=== PATIENT | male | born 1980 | race American Indian/Alaskan Native ===

== ENCOUNTER 2022-06-25 21:19 | Inpatient (IN) | payer SELFPAY ==
[2022-06-25 21:43] LABS: Basophils % (Auto) 0.2 % (0.0-1.8); Eosinophils % (Auto) 0.2 % (0.0-4.3); Hematocrit 40.4 % (35.5-45.6); Hemoglobin 13.4 gm/dl (11.8-15.2); Lymphocytes # (Auto) 2.8 K/mm3 (1.2-5.4); Lymphocytes % (Auto) 16.4 % (13.4-35.0); Mean Corpuscular HGB Conc 33 % (32-34); Mean Corpuscular Volume 83 fl (84-94); Monocytes # (Auto) 1.2 K/mm3 (0.0-0.8); Monocytes % (Auto) 6.6 % (0.0-7.3); Platelet Count 264 K/mm3 (140-440); Red Blood Count 4.88 M/mm3 (3.65-5.03); Red Cell Distribution Width 13.7 % (13.2-15.2)
[2022-06-25 21:57] LABS: Alanine Aminotransferase 28 units/L (7-56); Albumin 3.9 g/dL (3.9-5); BUN/Creatinine Ratio 10; Blood Urea Nitrogen 8 mg/dL (9-20); Calcium 8.8 mg/dL (8.4-10.2); Hemolysis Index 7
[2022-06-25 22:15] LABS: Mucus,Urine 3+ /HPF
[2022-06-25 22:22] LABS: Bilirubin,Urine Negative (Negative); Color,Urine Yellow (Yellow)
[2022-06-25 22:23] LABS: Blood,Urine Trace (Negative); Urobilinogen,Urine < 2.0 mg/dL (<2.0)
[2022-06-26] MEDS ORDERED: HYOSCYAMINE SUBL 0.125 MG TAB SL ONE (01:56)
--- NOTE | 2022-06-26 02:01 | Emergency Department Report ---
ED General Adult HPI - General Chief complaint: Abdominal Pain Stated complaint: ABD PAIN Time Seen by Provider: 06/26/22 01:54 Source: patient Mode of arrival: Ambulatory Limitations: No Limitations - History of Present Illness Severity scale (0 -10): 8 - Related Data Allergies Allergy/AdvReac Type Severity Reaction Status Date / Time No Known Allergies Allergy Unverified 06/25/22 21:25 ED Review of Systems ROS: Stated complaint: ABD PAIN Other details as noted in HPI Comment: All other systems reviewed and negative ED Past Medical Hx - Past Medical History Previous Medical History?: Yes Hx Diabetes: Yes - Surgical History Past Surgical History?: No ED Physical Exam - General Limitations: No Limitations General appearance: alert, in no apparent distress - Head Head exam: Present: atraumatic, normocephalic - Eye Eye exam: Present: normal appearance, PERRL, EOMI - ENT ENT exam: Present: mucous membranes moist - Neck Neck exam: Present: normal inspection - Respiratory Respiratory exam: Present: normal lung sounds bilaterally. Absent: respiratory distress - Cardiovascular Cardiovascular Exam: Present: regular rate, normal rhythm. Absent: systolic murmur, diastolic murmur, rubs, gallop - GI/Abdominal GI/Abdominal exam: Present: soft, tenderness, normal bowel sounds. Absent: distended, guarding, hypoactive bowel sounds, mass, bruit - Rectal Rectal exam: Present: deferred - Extremities Exam Extremities exam: Present: normal inspection - Back Exam Back exam: Present: normal inspection - Neurological Exam Neurological exam: Present: alert, oriented X3 - Psychiatric Psychiatric exam: Present: normal affect, normal mood - Skin Skin exam: Present: warm, dry, intact, normal color. Absent: rash ED Course Vital Signs 06/25/22 06/26/22 21:25 05:33 Temperature 98.1 F Pulse Rate 85 Respiratory 16 18 Rate Blood Pressure 168/90 [Right] O2 Sat by Pulse 97 Oximetry - Consultations Consultation #1: 06/26/22 07:40 Case discussed with Generl surgery Dr. Renee Plan to consult. Advised to admit to medicine. Accepted by Dr. Keith ED Medical Decision Making - Lab Data Result diagrams: 06/25/22 21:34 06/25/22 21:34 - Radiology Data Radiology results: report reviewed [facility] [address] [place] [address] Cat Scan Report Signed Patient: JOSHUA DUBOSE MR#: [id number] : 1980 Acct:[id number] Age/Sex: 41 / M ADM Date: 06/25/22 Loc: ED Attending Dr: Ordering Physician: RADHA BRADSHAW Date of Service: 06/26/22 Procedure(s): CT abdomen pelvis w con Accession Number(s): [id number] cc: RADHA BRADSHAW CT ABDOMEN AND PELVIS WITH CONTRAST HISTORY: Lower ABD Pain. COMPARISON: None. TECHNIQUE: CT images of the abdomen and pelvis were obtained following ad ministration of intravenous contrast. All CT scans at this location are performed using CT dose reduction for ALARA by means of automated exposure control. CONTRAST: 100 ml of intravenous contrast administered. FINDINGS: Lungs/bones: Lung bases are clear Abdomen/pelvis: Mild fatty infiltration liver. There is some edema/fluid surrounding the gallbladder. The spleen, adrenal glands, pancreas and upper GI tract appear normal. Bilateral kidneys appear normal. The appendix appears normal. There are several diverticula within the sigmoid colon. Incomplete distention of the left colon. Thickening of the distal sigmoid colon and rectal wall. No focal inflammatory changes seen. No small bowel obstruction is identified. No hydronephrosis is seen. Urinary bladder appears normal. No acute bone findings are seen. IMPRESSION: 1. Fluid/edematous change surrounding the gallbladder could represent gallbladder wall thickening is fluid. Gallbladder ultrasound could be performed for further evaluation. 2. Sigmoid diverticulosis. There is thickening of the distal sigmoid colon and rectal wall best seen on axial image 151. Follow-up recommended. Signer Name: Chico Locke MD Signed: 06/26/2022 3:25 AM Workstation Name: [id number] Transcribed By: DANIELA Dictated By: NATHALY LOCKE MD Electronically Authenticated By: NATHALY LOCKE MD Signed Date/Time: 06/26/22324 DD/ 1 TD/TT: Critical care attestation.: If time is entered above; I have spent that time in minutes in the direct care of this critically ill patient, excluding procedure time. ED Disposition Clinical Impression: Acute cholecystitis Disposition: 01 HOME / SELF CARE / HOMELESS Is pt being admited?: Yes Does the pt Need Aspirin: No Condition: Stable Instructions: Cholecystitis
--- NOTE | 2022-06-26 03:30 | Cat Scan Report ---
CT ABDOMEN AND PELVIS WITH CONTRAST HISTORY: Lower ABD Pain. COMPARISON: None. TECHNIQUE: CT images of the abdomen and pelvis were obtained following administration of intravenous contrast. All CT scans at this location are performed using CT dose reduction for ALARA by means of automated exposure control. CONTRAST: 100 ml of intravenous contrast administered. FINDINGS: Lungs/bones: Lung bases are clear Abdomen/pelvis: Mild fatty infiltration liver. There is some edema/fluid surrounding the gallbladder . The spleen, adrenal glands, pancreas and upper GI tract appear normal. Bilateral kidneys appear nor mal. The appendix appears normal. There are several diverticula within the sigmoid colon. Incomplete distention of the left colon. Thickening of the distal sigmoid colon and rectal wall. No focal inflam matory changes seen. No small bowel obstruction is identified. No hydronephrosis is seen. Urinary pallavi dder appears normal. No acute bone findings are seen. IMPRESSION: 1. Fluid/edematous change surrounding the gallbladder could represent gallbladder wall thickening is fluid. Gallbladder ultrasound could be performed for further evaluation. 2. Sigmoid diverticulosis. There is thickening of the distal sigmoid colon and rectal wall best seen on axial image 151. Follow-up recommended. Signer Name: Chico Locke MD Signed: 06/26/2022 3:25 AM Workstation Name: [id number]
[2022-06-26] MEDS ORDERED: KETOROLAC 30 MG/1 ML INJ IV STA (05:28)
[2022-06-26] MEDS ORDERED: ONDANSETRON 4 MG/2 ML INJ IV STA (05:28)
--- NOTE | 2022-06-26 07:04 | Ultrasound Report ---
Abdominal ultrasound INDICATION: Right upper quadrant pain FINDINGS: Aorta and IVC appear normal. Right kidney measures 9.9 cm. The liver is enlarged measuring 19.8 cm with fatty infiltration. There is marked thickening of the gallbladder wall with pericholecys tic fluid negative Ayoub's sign. Common bile duct measures 4 mm IMPRESSION: Cholelithiasis with thickened gallbladder wall measuring 7.9 mm. There is also pericholecystic fluid. Findings concerning for acute cholecystitis. Hepatomegaly with hepatic steatosis. Signer Name: Chico Locke MD Signed: 06/26/2022 7:00 AM Workstation Name: [id number]
[2022-06-26] MEDS ORDERED: PIPERACILLIN/TAZOBACTAM 3.375 3.375 GM/50 ML BAG IV ONE (07:23)
--- NOTE | 2022-06-26 07:49 | History and Physical Report ---
History of Present Illness Date of examination: 06/26/22 Date of admission: 06/26/2022 Chief complaint: Nausea, vomiting, diarrhea, and abdominal pain of 1 day duration History of present illness: 41-year-old morbidly obese male patient with no significant past medical history not on any medications presented to the emergency room with complaints of nausea vomiting diarrhea and upper abdominal pain since yesterday patient grades his pain between 7-8 over 10 at its peak intermittent patient did not take any new medications not tried any new diet denies hematemesis or melena initial evaluation in the ED with CT abdomen and pelvis findings are consistent with possible acute cholecystitis confirmed by, abdominal ultrasound Denies any fever denies any headache dizziness, denies any chest pain or shortness of breath Patient received pain medications IV fluids and empiric IV antibiotics ER physician has already consulted surgeon Dr. Renee Abdominal ultrasound; cholelithiasis with thickened gallbladder wall measuring 7.9 mm, pericholecystic fluid present findings concerning for acute cholecystitis CT abdomen and pelvis with contrast; Fluid/edematous changes surrounding the gallbladder could represent gallbladder wall thickening gallbladder ultrasound could be performed for further evaluation Sigmoid diverticulosis, there is thickening of the distal sigmoid colon and rectal wall best seen on the axial image Past History Past Medical History: No medical history Past Surgical History: No surgical history Social history: denies: smoking, alcohol abuse, prescription drug abuse Family history: no significant family history Medications and Allergies Allergies Allergy/AdvReac Type Severity Reaction Status Date / Time No Known Allergies Allergy Unverified 06/25/22 21:25 Active Meds: Active Medications Piperacillin Sod/Tazobactam Sod (Zosyn/Ns 3.375gm/50ml) 3.375 gm in 50 mls @ 100 mls/hr IV ONCE ONE; Protocol Stop: 06/26/22 07:52 Sodium Chloride (Sodium Chloride 0.9% 10 Ml Flush Syringe) 10 ml IV PRN PRN PRN Reason: LINE FLUSH Review of Systems Constitutional: fatigue, weakness, no weight loss, no weight gain, no fever, no chills Ears, nose, mouth and throat: no nasal congestion, no nasal discharge Cardiovascular: no chest pain, no orthopnea, no palpitations Respiratory: no cough, no hemoptysis Gastrointestinal: abdominal pain, nausea, vomiting, diarrhea Genitourinary Male: no dysuria, no hematuria Musculoskeletal: no myalgias, no arthritis Integumentary: no rash, no lesions Neurological: no parathesias, no numbness, no seizures, no syncope Psychiatric: no anxiety, no depression Endocrine: no cold intolerance, no heat intolerance Hematologic/Lymphatic: no easy bruising, no easy bleeding Allergic/Immunologic: no urticaria, no allergic rhinitis Exam - Constitutional Vitals: Temp Pulse Resp BP Pulse Ox 98.1 F 85 18 168/90 97 06/25/22 21:25 06/25/22 21:25 06/26/22 05:33 06/25/22 21:25 06/25/22 21:25 General appearance: Present: mild distress, well-nourished, obese (Morbidly obese) - EENT Eyes: Present: PERRL, EOM intact - Neck Neck: Present: supple, normal ROM - Respiratory Respiratory effort: normal Respiratory: bilateral: diminished, negative: rales, rhonchi, wheezing - Cardiovascular Rhythm: regular Heart Sounds: Present: S1 & S2 - Extremities Extremities: no ischemia, No edema - Abdominal General gastrointestinal: Present: soft, non-tender, non-distended, normal bowel sounds - Integumentary Integumentary: Present: clear, warm - Musculoskeletal Musculoskeletal: strength equal bilaterally, generalized weakness - Psychiatric Psychiatric: appropriate mood/affect, cooperative - Neurologic Neurologic: CNII-XII intact, moves all extremities Results - Labs CBC & Chem 7: 06/25/22 21:34 06/25/22 21:34 Labs: Abnormal lab results 06/25/22 06/25/22 Range/Units 21:34 21:34 WBC 17.3 H (4.5-11.0) K/mm3 MCV 83 L (84-94) fl MCH 27 L (28-32) pg [place] # (Auto) 1.2 H (0.0-0.8) K/mm3 Seg Neutrophils % 76.6 H (40.0-70.0) % Seg Neutrophils # 13.3 H (1.8-7.7) K/mm3 Sodium 135 L (137-145) mmol/L BUN 8 L (9-20) mg/dL Glucose 144 H (75-100) mg/dL Assessment and Plan -- Possible acute cholecystitis with cholelithiasis; N.p.o. status, IV fluids, IV antibiotics Surgery consult -- Intractable nausea vomiting and abdominal pain; Secondary to possible acute cholecystitis Antiemetics, PPIs, IV fluids, treat the underlying cause -- Leukocytosis; Probably due to acute cholecystitis Treat the underlying cause,Closely monitor -- Mild hyponatremia; IV normal saline closely monitor electrolytes, -- Hypertension; Patient has no history of hypertension knowledge patient on any medications Probably due to pain and discomfort Closely monitor blood pressures and adjust meds as needed As needed hydralazine -- DVT prophylaxis; SCDs, no pharmacologic anticoagulation at this point Due to possible pending procedure --Morbid obesity; BMI 42.8 Patient needs lifestyle changes, dietary modification and exercise as tolerated And weight reduction when he is medically stable May benefit from outpatient bariatric surgical consultation for different reduction programs when patient is stable. Follow clinically, follow surgery evaluation recommendations We will closely monitor the patient and adjust the management as needed Plan of care discussed with the patient and his nurse. Advance care planning; +30 minutes I discussed patient's condition and tests and reports, I discussed with the patient his diagnosis I discussed with patient the treatment plan, I discussed with the patient the need for consultants evaluating him I discussed with the patient the recommendations of the consultants and the treatment plan. He had numerous questions and I answered all of them. Patient verbalized understanding Prolonged inpatient care; 35 minutes --
[2022-06-26] MEDS ORDERED: ACETAMINOPHEN 325 MG TAB PO PRN (09:00)
[2022-06-26] MEDS ORDERED: MORPHINE 4 MG/1 ML INJ IV PRN (09:00)
[2022-06-26] MEDS ORDERED: ONDANSETRON 4 MG/2 ML INJ IV PRN (09:00)
[2022-06-26] MEDS: ENOXAPARIN 40 MG/0.4 ML INJ SUB-Q SCH (09:49)
[2022-06-26] MEDS: PANTOPRAZOLE 40 MG INJ IV SCH (09:49)
--- NOTE | 2022-06-26 10:04 | Consultation ---
History of Present Illness Consult date: 06/26/22 Reason for consult: abdominal pain - History of present illness History of present illness: This is a 41-year-old -[place] male patient he notes the onset of upper abdominal pain beginning last Sunday after fried chicken. He has not had some similar pain in the past. He is denying any prior history of pancreatitis or ye llow jaundice. His white count what it was noted to be elevated to 17,[address] scan of the abdomen is showing acute cholecystitis. Ultrasound was also obtained confirming also acute cholecystitis. At the time of the interview patient was beginning to feel better. Medications and Allergies Allergies Allergy/AdvReac Type Severity Reaction Status Date / Time No Known Allergies Allergy Unverified 06/25/22 21:25 Active Meds: Active Medications Acetaminophen (Acetaminophen 325 Mg Tab) 650 mg PO Q4H PRN PRN Reason: Pain MILD(1-3)/Fever >100.5/SMITH Enoxaparin Sodium (Enoxaparin 40 Mg/0.4 Ml Inj) 40 mg SUB-Q QDAY [facility] Last Admin: 06/26/22 09:49 Dose: 40 mg Sodium Chloride (Nacl 0.9% 1000 Ml) 1,000 mls @ 125 mls/hr IV DIRECT ARLENE Piperacillin Sod/Tazobactam Sod (Zosyn/Ns 4.5gm/100ml) 4.5 gm in 100 mls @ 200 mls/hr IV Q8H [facility]; Protocol Morphine Sulfate (Morphine 2 Mg/1 Ml Inj) 2 mg IV Q4H PRN PRN Reason: Pain, Moderate (4-6) Morphine Sulfate (Morphine 4 Mg/1 Ml Inj) 4 mg IV Q4H PRN PRN Reason: Pain , Severe (7-10) Ondansetron HCl (Ondansetron 4 Mg/2 Ml Inj) 4 mg IV Q4H PRN PRN Reason: Nausea And Vomiting Pantoprazole Sodium (Pantoprazole 40 Mg Inj) 40 mg IV QDAY [facility] Last Admin: 06/26/22 09:49 Dose: 40 mg Sodium Chloride (Sodium Chloride 0.9% 10 Ml Flush Syringe) 10 ml IV PRN PRN PRN Reason: LINE FLUSH Sodium Chloride (Sodium Chloride 0.9% 10 Ml Flush Syringe) 10 ml IV BID [facility] Last Admin: 08/15/22 09:52 Dose: 10 ml Sodium Chloride (Sodium Chloride 0.9% 10 Ml Flush Syringe) 10 ml IV PRN PRN PRN Reason: LINE FLUSH Exam Vital Signs Temp Pulse Resp BP Pulse Ox 98.1 F 85 16 168/90 97 06/25/22 21:25 06/25/22 21:25 06/25/22 21:25 06/25/22 21:25 06/25/22 21:25 - General physical appearance Positive: well developed, no distress - Eyes Positive: PERRL - Neck Positive: no masses, no bruits, trachea midline - Respiratory Positive: normal expansion - Cardiovascular Rhythm: regular - Extremities Extremities: no ischemia, No edema - Abdomen Abdomen: Present: soft, tender, bowel sounds normal. Absent: distended, masses, rebound Hernia: none - Integumentary no rash - Neurologic Neurologic: alert and oriented to time, place and person, motor strength and sensation are grossly intact, CN II-XII intact Results - Labs 06/25/22 21:34 06/25/22 21:34 Abnormal lab results 06/25/22 06/25/22 Range/Units 21:34 21:34 WBC 17.3 H (4.5-11.0) K/mm3 MCV 83 L (84-94) fl MCH 27 L (28-32) pg [place] # (Auto) 1.2 H (0.0-0.8) K/mm3 Seg Neutrophils % 76.6 H (40.0-70.0) % Seg Neutrophils # 13.3 H (1.8-7.7) K/mm3 Sodium 135 L (137-145) mmol/L BUN 8 L (9-20) mg/dL Glucose 144 H (75-100) mg/dL Diabetes panel 06/25/22 Range/Units 21:34 Sodium 135 L (137-145) mmol/L Potassium 3.7 (3.6-5.0) mmol/L Chloride 98.1 (98-107) mmol/L Carbon Dioxide 24 (22-30) mmol/L BUN 8 L (9-20) mg/dL Creatinine 0.8 (0.8-1.3) mg/dL Glucose 144 H (75-100) mg/dL Calcium 8.8 (8.4-10.2) mg/dL AST 21 (5-40) units/L ALT 28 (7-56) units/L Alkaline Phosphatase 90 (35-129) units/L Total Protein 8.1 (6.3-8.2) g/dL Albumin 3.9 (3.9-5) g/dL Calcium panel 06/25/22 Range/Units 21:34 Calcium 8.8 (8.4-10.2) mg/dL Albumin 3.9 (3.9-5) g/dL Pituitary panel 06/25/22 Range/Units 21:34 Sodium 135 L (137-145) mmol/L Potassium 3.7 (3.6-5.0) mmol/L Chloride 98.1 (98-107) mmol/L Carbon Dioxide 24 (22-30) mmol/L BUN 8 L (9-20) mg/dL Creatinine 0.8 (0.8-1.3) mg/dL Glucose 144 H (75-100) mg/dL Calcium 8.8 (8.4-10.2) mg/dL Adrenal panel 06/25/22 Range/Units 21:34 Sodium 135 L (137-145) mmol/L Potassium 3.7 (3.6-5.0) mmol/L Chloride 98.1 (98-107) mmol/L Carbon Dioxide 24 (22-30) mmol/L BUN 8 L (9-20) mg/dL Creatinine 0.8 (0.8-1.3) mg/dL Glucose 144 H (75-100) mg/dL Calcium 8.8 (8.4-10.2) mg/dL Total Bilirubin 0.60 (0.1-1.2) mg/dL AST 21 (5-40) units/L ALT 28 (7-56) units/L Alkaline Phosphatase 90 (35-129) units/L Total Protein 8.1 (6.3-8.2) g/dL Albumin 3.9 (3.9-5) g/dL Assessment and Plan Patient with acute cholecystitis. Clinically with signs of improvement. Continue IV antibiotics for the elevated white count. Patient may have clear liquids at this time. And if tolerated advance to a low-fat diet. Please make patient n.p.o. after midnight. If pain rate recurs patient will have lap clemencia done this admission.
[2022-06-26] MEDS: MORPHINE 2 MG/1 ML INJ IV PRN (14:28)
[2022-06-26] MEDS: PIPERACIL/TAZOBACTA 4.5/NS 100 4.5 GM/100 ML VIAL IV SCH ×2 (21:49→23:03)
[2022-06-26] MEDS: SODIUM CHLORIDE 0.9% 1000 ML 1,000 ML IV SCH (23:05)
[2022-06-27 06:19] LABS: Basophils % (Auto) 0.2 % (0.0-1.8); Eosinophils % (Auto) 0.3 % (0.0-4.3); Hemoglobin 12.4 gm/dl (11.8-15.2); Lymphocytes # (Auto) 2.2 K/mm3 (1.2-5.4); Lymphocytes % (Auto) 16.8 % (13.4-35.0); Mean Corpuscular HGB Conc 32 % (32-34); Mean Corpuscular Volume 83 fl (84-94); Monocytes # (Auto) 1.3 K/mm3 (0.0-0.8); Monocytes % (Auto) 9.8 % (0.0-7.3); Platelet Count 230 K/mm3 (140-440); Red Blood Count 4.67 M/mm3 (3.65-5.03)
[2022-06-27] MEDS: SODIUM CHLORIDE 0.9% 1000 ML 1,000 ML IV SCH ×3 (06:27→23:11)
[2022-06-27] MEDS: MORPHINE 2 MG/1 ML INJ IV PRN ×2 (06:30→14:28)
[2022-06-27 06:41] LABS: Alanine Aminotransferase 19 units/L (7-56); Albumin 3.6 g/dL (3.9-5); BUN/Creatinine Ratio 10; Blood Urea Nitrogen 9 mg/dL (9-20); Calcium 8.8 mg/dL (8.4-10.2); Hemolysis Index 0
[2022-06-27] MEDS: PIPERACIL/TAZOBACTA 4.5/NS 100 4.5 GM/100 ML VIAL IV SCH ×3 (08:52→23:11)
[2022-06-27] MEDS: PANTOPRAZOLE 40 MG INJ IV SCH (09:03)
[2022-06-27] MEDS: ENOXAPARIN 40 MG/0.4 ML INJ SUB-Q SCH (09:03)
[2022-06-27] MEDS: amLODIPine 10 MG TAB PO SCH (13:05)
--- NOTE | 2022-06-27 13:31 | Progress Note ---
Assessment and Plan -- Acute cholecystitis with cholelithiasis; N.p.o. status, IV fluids, IV antibiotics Surgery consult -- Intractable nausea vomiting and abdominal pain; Secondary to possible acute cholecystitis Antiemetics, PPIs, IV fluids, treat the underlying cause -- Leukocytosis; Probably due to acute cholecystitis Treat the underlying cause,Closely monitor -- Mild hyponatremia; IV normal saline closely monitor electrolytes, -- Hypertension; Patient has no history of hypertension knowledge patient on any medications Probably due to pain and discomfort Closely monitor blood pressures and adjust meds as needed As needed hydralazine -- DVT prophylaxis; SCDs, no pharmacologic anticoagulation at this point Due to possible pending procedure --Morbid obesity; BMI 42.8 Patient needs lifestyle changes, dietary modification and exercise as tolerated And weight reduction when he is medically stable May benefit from outpatient bariatric surgical consultation for different reduction programs when patient is stable. Follow clinically, follow surgery evaluation recommendations We will closely monitor the patient and adjust the management as needed Plan of care discussed with the patient and his nurse. Advance care planning; +30 minutes I discussed patient's condition and tests and reports, I discussed with the patient his diagnosis I discussed with patient the treatment plan, I discussed with the patient the need for consultants evaluating him I discussed with the patient the recommendations of the consultants and the treatment plan. He had numerous questions and I answered all of them. Patient verbalized understanding Prolonged inpatient care; 35 minutes Subjective Date of service: 06/27/22 Objective - Constitutional Vitals: Vital Signs - 12hr 06/27/22 06/27/22 06/27/22 05:05 11:50 13:05 Temperature 98.4 F 97.8 F Pulse Rate 70 70 Respiratory 20 18 Rate Blood Pressure 166/97 152/83 O2 Sat by Pulse 99 98 100 Oximetry 06/27/22 13:06 Temperature Pulse Rate 74 Respiratory Rate Blood Pressure O2 Sat by Pulse 100 Oximetry - Labs CBC & Chem 7: 06/27/22 04:00 06/27/22 04:00 Labs: Abnormal lab results 06/27/22 06/27/22 Range/Units 04:00 04:00 WBC 13.0 H (4.5-11.0) K/mm3 MCV 83 L (84-94) fl MCH 27 L (28-32) pg [place] % (Auto) 9.8 H (0.0-7.3) % [place] # (Auto) 1.3 H (0.0-0.8) K/mm3 Seg Neutrophils % 72.9 H (40.0-70.0) % Seg Neutrophils # 9.5 H (1.8-7.7) K/mm3 Glucose 125 H (75-100) mg/dL Albumin 3.6 L (3.9-5) g/dL
--- NOTE | 2022-06-27 20:33 | Progress Note ---
Assessment and Plan Patient with acute cholecystitis. Clinically with signs of improvement. Continue IV antibiotics for the elevated white count. Patient may have clear liquids at this time. Please make patient n.p.o. after midnight. Patient with continued pain with relief only with IV opiates. He is unable to advance to a regular diet or even liquids because of the pain. He was scheduled to have a laparoscopic cholecystectomy today however OR schedule went late into the evening. Patient to have laparoscopic cholecystectomy rescheduled for tomorrow midmorning. He is allowed to have clear liquids as tolerated tonight and n.p.o. after midnight. Subjective Date of service: 06/27/22 Patient Reports: Positive: still having pain Narrative: Patient with continued pain with relief only with IV opiates. He is unable to advance to a regular diet or even liquids because of the pain. He was scheduled to have a laparoscopic cholecystectomy today however OR schedule went late into the evening. Patient to have laparoscopic cholecystectomy rescheduled for tomorrow midmorning. He is allowed to have clear liquids as tolerated tonight and n.p.o. after midnight. Objective Vital Signs - 12hr 06/27/22 06/27/22 06/27/22 11:50 13:05 13:06 Temperature 97.8 F Pulse Rate 70 74 Respiratory 18 Rate Blood Pressure 152/83 O2 Sat by Pulse 98 100 100 Oximetry - Labs 06/27/22 04:00 06/27/22 04:00 Diabetes panel 06/27/22 Range/Units 04:00 Sodium 139 (137-145) mmol/L Potassium 3.6 (3.6-5.0) mmol/L Chloride 101.4 (98-107) mmol/L Carbon Dioxide 25 (22-30) mmol/L BUN 9 (9-20) mg/dL Creatinine 0.9 (0.8-1.3) mg/dL Glucose 125 H (75-100) mg/dL Calcium 8.8 (8.4-10.2) mg/dL AST 11 (5-40) units/L ALT 19 (7-56) units/L Alkaline Phosphatase 80 (35-129) units/L Total Protein 7.2 (6.3-8.2) g/dL Albumin 3.6 L (3.9-5) g/dL Calcium panel 06/27/22 Range/Units 04:00 Calcium 8.8 (8.4-10.2) mg/dL Albumin 3.6 L (3.9-5) g/dL Pituitary panel 06/27/22 Range/Units 04:00 Sodium 139 (137-145) mmol/L Potassium 3.6 (3.6-5.0) mmol/L Chloride 101.4 (98-107) mmol/L Carbon Dioxide 25 (22-30) mmol/L BUN 9 (9-20) mg/dL Creatinine 0.9 (0.8-1.3) mg/dL Glucose 125 H (75-100) mg/dL Calcium 8.8 (8.4-10.2) mg/dL Adrenal panel 06/27/22 Range/Units 04:00 Sodium 139 (137-145) mmol/L Potassium 3.6 (3.6-5.0) mmol/L Chloride 101.4 (98-107) mmol/L Carbon Dioxide 25 (22-30) mmol/L BUN 9 (9-20) mg/dL Creatinine 0.9 (0.8-1.3) mg/dL Glucose 125 H (75-100) mg/dL Calcium 8.8 (8.4-10.2) mg/dL Total Bilirubin 0.70 (0.1-1.2) mg/dL AST 11 (5-40) units/L ALT 19 (7-56) units/L Alkaline Phosphatase 80 (35-129) units/L Total Protein 7.2 (6.3-8.2) g/dL Albumin 3.6 L (3.9-5) g/dL
[2022-06-28] MEDS: SODIUM CHLORIDE 0.9% 1000 ML 1,000 ML IV SCH (05:11)
[2022-06-28] MEDS: PIPERACIL/TAZOBACTA 4.5/NS 100 4.5 GM/100 ML VIAL IV SCH ×2 (08:34→19:39)
[2022-06-28] MEDS: amLODIPine 10 MG TAB PO SCH (10:25)
[2022-06-28] MEDS: ENOXAPARIN 40 MG/0.4 ML INJ SUB-Q SCH (10:25)
[2022-06-28] MEDS: D5W/0.9% NACL 1,000 ML IV SCH ×2 (10:26→19:45)
[2022-06-28] MEDS: PANTOPRAZOLE 40 MG INJ IV SCH (10:26)
[2022-06-28] MEDS ORDERED: propofoL 200 MG/20 ML VIAL IV ONE (13:49)
[2022-06-28] MEDS ORDERED: HYDROmorphone 1 MG/1 ML INJ ONE (13:49)
[2022-06-28] MEDS ORDERED: LIDOCAINE (2%) 20 MG/1 ML VIAL 20 ML MDV INFILTRATI ONE ×3 (14:16→15:21)
[2022-06-28] MEDS ORDERED: BUPIVACAINE/PF (0.5%) 5 MG/1 ML 10 ML VIAL INFILTRATI ONE ×2 (14:17→15:20)
[2022-06-28] MEDS ORDERED: ONDANSETRON 4 MG/2 ML INJ IV PRN (15:04)
[2022-06-28] MEDS ORDERED: HYDROmorphone 0.5 MG/0.5 ML INJ IV PRN (15:04)
--- NOTE | 2022-06-28 15:04 | Anesthesia Consultation ---
Anesthesia Consult and Med Hx Date of service: 06/28/22 - Airway Anesthetic Teeth Evaluation: Good ROM Head & Neck: Adequate Mental/Hyoid Distance: Adequate Mallampati Class: Class II Intubation Access Assessment: Probably Good - Pre-Operative Health Status ASA Pre-Surgery Classification: ASA2 Proposed Anesthetic Plan: General - Pulmonary Hx Smoking: No Hx Respiratory Symptoms: No - Cardiovascular System Hx Hypertension: No (BP elevated this admission; no prior diagnosis) - Central Nervous System CVA: No - Endocrine Hx Renal Disease: No Hx Liver Disease: No Hx Insulin Dependent Diabetes: No Hx Non-Insulin Dependent Diabetes: No Hx Thyroid Disease: No - Other Systems Hx Obesity: Yes - Additional Comments Anesthesia Medical History Comments: No prior GA. No nausea/vomiting today.
--- NOTE | 2022-06-28 15:04 | Anesthesia Day of Surgery ---
Anesthesia Day of Surgery - Day of Surgery Patient Examined: Yes Patient H&P Reviewed: Yes Patient is NPO: Yes
[2022-06-28] MEDS ORDERED: SODIUM CHLORIDE 0.9% IRRIG SOLN 2000 ML IR ONE (15:21)
[2022-06-28] MEDS ORDERED: SODIUM CHLORIDE 0.9% IRR 1,500 ML BOTTLE IR ONE (15:22)
--- NOTE | 2022-06-28 15:54 | Discharge Summary ---
Providers - Providers Date of Admission: 06/26/22 08:00 Date of discharge: 06/29/22 Attending physician: MAYRA YOUNG 06/26/22 08:11 Consult to Physician [CONS] Routine Comment: Consulting Provider: ELAINE RYDER Physician Instructions: Reason For Exam: Acute cholecystitis Primary care physician: LARRY CORDOVA Hospitalization Condition: Stable Disposition: 01 HOME / SELF CARE / HOMELESS Exam - Constitutional Vitals: Temp Pulse Resp BP Pulse Ox 98.2 F 72 20 145/84 98 06/28/22 05:05 06/28/22 05:05 06/28/22 05:05 06/28/22 05:05 06/28/22 08:55 Plan Activity: fall precautions Weight Bearing Status: Non-Weight Bearing Diet: low fat, low salt Follow up with: LARRY CORDOVA MD [Primary Care Provider] - 3-5 Days ELAINE RYDER MD [Staff Physician] - 7 Days Prescriptions: oxyCODONE /ACETAMINOPHEN [Percocet 5/325] 1 tab PO Q6HR PRN #14 tablet PRN Reason: Pain
[2022-06-28] MEDS ORDERED: PHENYLEPHRINE/NS 1,000 MCG/10 ML SYRINGE (OR USE) IV ONE (16:08)
[2022-06-28] MEDS ORDERED: ONDANSETRON 4 MG/2 ML INJ ONE (16:08)
[2022-06-28] MEDS ORDERED: dexAMETHasone 20 MG/5 ML VIAL ONE (16:08)
[2022-06-28] MEDS ORDERED: ROCURONIUM 50 MG/5 ML INJ IV ONE (16:09)
[2022-06-28] MEDS ORDERED: SUCCINYLCHOLINE CHLORIDE 200 MG/10 ML INJ MDV ONE (16:09)
[2022-06-28] MEDS ORDERED: GLYCOPYRROLATE 0.4 MG/2 ML INJ ONE (16:11)
[2022-06-28] MEDS ORDERED: NEOSTIGMINE 10MG/10 ML INJ MDV ONE (16:11)
--- NOTE | 2022-06-28 16:56 | Operative Report ---
Operative Report Operative Report: Date: 06/28/2020 Preop diagnosis: cholecystitis with cholelithiasis Postop diagnosis: same Procedure: Laparoscopic cholecystectomy without cholangiogram Surgeon: Dr. Renee Shoe Handler: Dr. Ward Anesthesia type: General endotracheal anesthesia Estimated blood loss: 350 cc Specimen: Gallbladder and stone Procedure: Patient is taken to the OR and after timeout are completed the abdomen was prepped with ChloraPrep and draped in a sterile fashion. A 3 mm incision is made in the left upper quadrant. Veress needle was used to gain access to the peritoneal cavity. Abdomen is insufflated with CO2. A 5 mm incision is made in the right subcostal position midclavicular line. A 5 mm Visiport is used to gain access to the peritoneal cavity. 2 additional 5 mm ports were placed one in the right lateral subcostal position and one in a supraumbilical position. In the subxiphoid position a 12 mm port is placed. Gallbladder graspers are used through the right subcostal ports. The gallbladder is very tense and aspiration showed purulent material which is sent for culture sensitivity and gram stain. The gallbladder was retracted superiorly anteriorly and laterally. The peritoneal reflection and adventitia are dissected with a cautery hook and the harmonic scalpel to expose the cystic duct and cystic artery as well as the cystic cleft. Critical view of safety is demonstrated. The cystic artery is clipped and divided. There is some bleeding noted after the artery was cut. This is managed with pressure and 4 x 4 gauzes. Bleeding site is localized and hemoclips are placed. A clip was placed on the cystic duct at its junction with the gallbladder. 2 clips were placed on the distal cystic duct. The cystic duct was then divided. The gallbladder was dissected off the gallbladder fossa It was then extracted after being placed in a specimen bag through the subxiphoid port. The subxiphoid port is enlarged to accommodate the large tense gallbladder. Hemostasis is good as and is improved with the electrocautery spatula. Surgicel powder is also used in the gallbladder fossa. The right upper quadrant irrigated with copious amounts of saline and then aspirated. Sponge and needle counts are noted to be correct at this time. A KIM drain is placed in Morison's pouch through the lateral right subcostal 5 mm port. 2-0 Vicryl on a UR U needle is used to close the subxiphoid incision. The skin is closed with 4-0 Monocryl and Dermabond. Patient tolerated procedure well.
[2022-06-29] MEDS: PIPERACIL/TAZOBACTA 4.5/NS 100 4.5 GM/100 ML VIAL IV SCH ×2 (00:30→10:40)
[2022-06-29 07:24] LABS: Alanine Aminotransferase 35 units/L (7-56); Albumin 3.4 g/dL (3.9-5); BUN/Creatinine Ratio 8; Blood Urea Nitrogen 8 mg/dL (9-20); Calcium 8.6 mg/dL (8.4-10.2); Hemolysis Index 0
[2022-06-29] MEDS: ENOXAPARIN 40 MG/0.4 ML INJ SUB-Q SCH (10:33)
[2022-06-29] MEDS: PANTOPRAZOLE 40 MG INJ IV SCH (10:34)
[2022-06-29] MEDS: amLODIPine 10 MG TAB PO SCH (10:34)
[2022-06-29 10:35] VITALS: BP 112/72
--- NOTE | 2022-06-29 10:58 | Progress Note ---
Assessment and Plan -- Acute cholecystitis with cholelithiasis; N.p.o. status, IV fluids, IV antibiotics Surgery consult -- Intractable nausea vomiting and abdominal pain; Secondary to possible acute cholecystitis Antiemetics, PPIs, IV fluids, treat the underlying cause -- Leukocytosis; Probably due to acute cholecystitis Treat the underlying cause,Closely monitor -- Mild hyponatremia; IV normal saline closely monitor electrolytes, -- Hypertension; Patient has no history of hypertension knowledge patient on any medications Probably due to pain and discomfort Closely monitor blood pressures and adjust meds as needed As needed hydralazine -- DVT prophylaxis; SCDs, no pharmacologic anticoagulation at this point Due to possible pending procedure --Morbid obesity; BMI 42.8 Patient needs lifestyle changes, dietary modification and exercise as tolerated And weight reduction when he is medically stable May benefit from outpatient bariatric surgical consultation for different reduction programs when patient is stable. Follow clinically, follow surgery evaluation recommendations We will closely monitor the patient and adjust the management as needed Plan of care discussed with the patient and his nurse. Advance care planning; +30 minutes I discussed patient's condition and tests and reports, I discussed with the patient his diagnosis I discussed with patient the treatment plan, I discussed with the patient the need for consultants evaluating him I discussed with the patient the recommendations of the consultants and the treatment plan. He had numerous questions and I answered all of them. Patient verbalized understanding Prolonged inpatient care; 35 minutes Subjective Date of service: 06/28/22 Objective - Constitutional Vitals: Vital Signs - 12hr 06/28/22 06/29/22 06/29/22 23:00 03:52 10:34 Temperature 98.3 F Pulse Rate 69 94 H Respiratory 16 Rate Blood Pressure 116/75 112/72 O2 Sat by Pulse 97 97 Oximetry - Labs CBC & Chem 7: 06/27/22 04:00 06/29/22 06:04 Labs: Abnormal lab results 06/29/22 Range/Units 06:04 BUN 8 L (9-20) mg/dL Glucose 144 H (75-100) mg/dL AST 49 H (5-40) units/L Albumin 3.4 L (3.9-5) g/dL
--- NOTE | 2022-06-29 11:48 | Progress Note ---
Assessment and Plan Patient with acute cholecystitis. Clinically with signs of improvement. Continue IV antibiotics for the elevated white count. Patient may have clear liquids at this time. Please make patient n.p.o. after midnight. Patient with continued pain with relief only with IV opiates. He is unable to advance to a regular diet or even liquids because of the pain. Pt is postop day #1 status post laparoscopic cholecystectomy. KIM is removed this morning. Patient is tolerating regular diet. He wishes to be discharged this morning. Follow-up with me in 1 week. Subjective Date of service: 06/29/22 Patient Reports: Positive: feels better Narrative: Pt is postop day #1 status post laparoscopic cholecystectomy. KIM is removed this morning. Patient is tolerating regular diet. He wishes to be discharged this morning. Follow-up with me in 1 week. Objective Vital Signs - 12hr 06/29/22 06/29/22 03:52 10:34 Temperature 98.3 F Pulse Rate 69 94 H Respiratory 16 Rate Blood Pressure 116/75 112/72 O2 Sat by Pulse 97 Oximetry - Labs 06/27/22 04:00 06/29/22 06:04 Diabetes panel 06/29/22 Range/Units 06:04 Sodium 137 (137-145) mmol/L Potassium 4.0 (3.6-5.0) mmol/L Chloride 101.4 (98-107) mmol/L Carbon Dioxide 26 (22-30) mmol/L BUN 8 L (9-20) mg/dL Creatinine 1.0 (0.8-1.3) mg/dL Glucose 144 H (75-100) mg/dL Calcium 8.6 (8.4-10.2) mg/dL AST 49 H (5-40) units/L ALT 35 (7-56) units/L Alkaline Phosphatase 80 (35-129) units/L Total Protein 6.7 (6.3-8.2) g/dL Albumin 3.4 L (3.9-5) g/dL Calcium panel 06/29/22 Range/Units 06:04 Calcium 8.6 (8.4-10.2) mg/dL Albumin 3.4 L (3.9-5) g/dL Pituitary panel 06/29/22 Range/Units 06:04 Sodium 137 (137-145) mmol/L Potassium 4.0 (3.6-5.0) mmol/L Chloride 101.4 (98-107) mmol/L Carbon Dioxide 26 (22-30) mmol/L BUN 8 L (9-20) mg/dL Creatinine 1.0 (0.8-1.3) mg/dL Glucose 144 H (75-100) mg/dL Calcium 8.6 (8.4-10.2) mg/dL Adrenal panel 06/29/22 Range/Units 06:04 Sodium 137 (137-145) mmol/L Potassium 4.0 (3.6-5.0) mmol/L Chloride 101.4 (98-107) mmol/L Carbon Dioxide 26 (22-30) mmol/L BUN 8 L (9-20) mg/dL Creatinine 1.0 (0.8-1.3) mg/dL Glucose 144 H (75-100) mg/dL Calcium 8.6 (8.4-10.2) mg/dL Total Bilirubin 0.50 (0.1-1.2) mg/dL AST 49 H (5-40) units/L ALT 35 (7-56) units/L Alkaline Phosphatase 80 (35-129) units/L Total Protein 6.7 (6.3-8.2) g/dL Albumin 3.4 L (3.9-5) g/dL
== END 2022-06-29 12:33 | disposition home or self-care (01) | DRG 418 ==
LOC: ED 21:19 → 3A 06-26 08:00
PROVIDERS: ADMIT Internal Medicine; ATTEND Internal Medicine
PROC: 0FT44ZZ Resection of Gallbladder, Percutaneous Endoscopic Approach (ICD-10-PCS; principal; 2022-06-28)
DX: K80.00 Calculus of gallbladder with acute cholecystitis without obstruction (principal); E87.1 Hypo-osmolality and hyponatremia; Z68.41 Body mass index [BMI] 40.0-44.9, adult; E66.01 Morbid (severe) obesity due to excess calories; I10 Essential (primary) hypertension; E11.9 Type 2 diabetes mellitus without complications; D72.829 Elevated white blood cell count, unspecified
CPT/HCPCS: 36415; 74177; 76705; 80053; 81001; 83690; 85025; 87116; 88304; G0378; J1815; J3490; C9113; J0330; J1100; J1170; J1650; J1885; J2270; J2370; J2405; J2543; J2704; J2710; J7030; J7042; Q9967